=== PATIENT | male | born 1945 | race Caucasian/White ===

== ENCOUNTER 2017-03-25 03:21 | Inpatient (IN) | payer MEDICARE, OTHER ==
[~2017-03-25] VITALS: Ht 172.7 cm; Wt 70.1 kg
[~2017-03-25 03:21] MED LIST: 3-IN3MIS; ACET325 PO; ASPI325T PO; BUSP5 PO; DONE10TA14 OR; FENO134C OR; FLUO-1 PO; LEVE500 PO; RANI300T PO; RISPM2 PO; TRAZ100T4 PO; TRIF1TAB2 PO; WALKER ROLLING; WALKER STANDARD; ZOCO40TA PO
[2017-03-25 03:30] VITALS: BP 154/80; PULSE 71; RESP 16; TEMP 97.7; O2SAT 99
--- NOTE | 2017-03-25 04:03 | PD ---
HPI Chief Complaint: Fall Time Seen by Provider: 03:38 Travel History International Travel<30 days: No Contact w/Intl Traveler<30days: No Traveled to known affect area: No History of Present Illness HPI 71yo M with PMH of DM, HLD, dementia, schizophrenia, HTN presents to the ED from [facility] for CT brain after fall today. Pt states he does not know what happened. As per nurse, a resident there saw him trip over wheelchair and fell and hit his head. Staff thought that he had slight right facial droop and his speech sounds funny. Pt denies any complaints. PFSH Past Medical History Hx Anticoagulant Therapy: No Arthritis: No Asthma: No Autoimmune Disease: No Blood Disorders: No Anxiety: No Depression: No Heart Rhythm Problems: No Cancer: No Cardiovascular Problems: Yes High Cholesterol: Yes Chemotherapy: No Chest Pain: No Congestive Heart Failure: No COPD: No Cerebrovascular Accident: No Dementia: Yes Diabetes: Yes Diminished Hearing: No Endocrine: No GERD: No Genitourinary: Yes (KIDNEY STONES) Hiatal Hernia: No Hypertension: Yes Immune Disorder: No Implanted Vascular Access Dvce: Yes Kidney Stones: Yes Musculoskeletal: No Neurologic: No Psychiatric: Yes (SCHIZOPHRENIA) Reproductive: No Respiratory: No Immunizations Current: No Migraines: No Radiation Therapy: No Renal Failure: No Schizophrenia: Yes Seizures: Yes (OVER 5 YEARS AGO) Sickle Cell Disease: No Sleep Apnea: No Thyroid Disease: No Ulcer: No PNEUMOCCOCAL Vaccine (Year): 2008 Past Surgical History Abdominal Surgery: No AICD: No Arteriovenous Shunt: No Cardiac Surgery: No Ear Surgery: No Endocrine Surgery: No (DIABETIC CONTROLLED WITH METFORMIN) Eye Surgery: No Genitourinary Surgery: No Gynecologic Surgery: No Hysterectomy: No Insulin Pump: No Joint Replacement: Yes (RIGHT HIP) Oral Surgery: Yes (CLEFT PALLET REPAIR) Pacemaker: No Thoracic Surgery: No Tonsillectomy: Yes Other Surgery: Yes (CLEFT PALATE/CLEFT LIP REPAIR.) Social History Alcohol Use: No Tobacco Use: Yes (2.5 PPD) Substance Use: No Allergies-Medications (Allergen,Severity, Reaction): Coded Allergies: bee venom protein (honey bee) (Unverified Allergy, Severe, PASSES OUT, ) risperidone (Unverified Allergy, Intermediate, Rash, 03/25/17) Reported Meds & Prescriptions Reported Meds & Active Scripts Active Reported Tylenol (Acetaminophen) 325 Mg Tab 650 Mg PO Q8HR Zantac (Ranitidine HCl) 150 Mg Tab 75 Mg PO DAILY Trifluoperazine (Trifluoperazine HCl) 10 Mg Tab 10 Mg PO HS Trazodone (Trazodone HCl) 50 Mg Tab 50 Mg PO HS Risperdal (Risperidone) 4 Mg Tab 4 Mg PO Q12HR Prozac (Fluoxetine HCl) 10 Mg Cap 10 Mg PO DAILY Metformin (Metformin HCl) 500 Mg Tab 500 Mg PO HS With a meal Metformin (Metformin HCl) 1,000 Mg Tab 1,000 Mg PO DAILY With a meal Keppra (Levetiracetam) 500 Mg Tab 500 Mg PO BID Fenofibrate Micronized 134 Mg Cap 134 Mg PO HS Donepezil 10 Mg Tab 10 Mg PO HS Vitamin D-1000 (Cholecalciferol) 1,000 Unit Tab 1,000 Units PO DAILY Buspirone (Buspirone HCl) 5 Mg Tab 5 Mg PO TID Atorvastatin (Atorvastatin Calcium) 20 Mg Tab 20 Mg PO HS Aspirin EC (Aspirin) 325 Mg Tabdr 325 Mg PO DAILY Review of Systems Except as stated in HPI: all other systems reviewed are Neg Physical Exam Narrative GENERAL: 71yo M not in distress. SKIN: Focused skin assessment warm/dry. HEAD: Atraumatic. Normocephalic. EYES: Pupils equal and round. No scleral icterus. No injection or drainage. ENT: No nasal bleeding or discharge. Mucous membranes pink and moist. NECK: Trachea midline. No JVD. CARDIOVASCULAR: Regular rate and rhythm. No murmur appreciated. RESPIRATORY: No accessory muscle use. Clear to auscultation. Breath sounds equal bilaterally. GASTROINTESTINAL: Abdomen soft, non-tender, nondistended. MUSCULOSKELETAL: No obvious deformities. No clubbing. No cyanosis. No edema. NEUROLOGICAL: AAOX3. Right angle of mouth is slightly lower than left, unknown if this is new. Pt has no teeth and no dysarthria. Data Data Last Documented VS Vital Signs Date Time Temp Pulse Resp B/P (MAP) Pulse Ox O2 Delivery O2 Flow Rate FiO2 03/25/17 03:30 97.7 71 16 154/80 (104) [address] Brain W/O Iv Contrast(Rout) (03/25/17 ) Complete Blood Count With Diff (03/25/17 03:46) Basic Metabolic Panel (Bmp) (03/25/17 03:46) Prothrombin Time / Inr (Pt) (03/25/17 03:46) Act Partial Throm Time (Ptt) (03/25/17 03:46) Electrocardiogram (03/25/17 ) Troponin I (03/25/17 03:46) Admit Order (Ed Use Only) (03/25/17 05:13) Labs Laboratory Tests Test 03/25/17 03:50 White Blood Count 8.8 TH/MM3 Red Blood Count 4.40 MIL/MM3 Hemoglobin 13.3 GM/DL Hematocrit 40.8 % Mean Corpuscular Volume 92.8 FL Mean Corpuscular Hemoglobin 30.3 PG Mean Corpuscular Hemoglobin Concent 32.6 % Red Cell Distribution Width 14.2 % Platelet Count 312 TH/MM3 Mean Platelet Volume 8.3 FL Neutrophils (%) (Auto) 68.7 % Lymphocytes (%) (Auto) 17.7 % Monocytes (%) (Auto) 11.0 % Eosinophils (%) (Auto) 1.8 % Basophils (%) (Auto) 0.8 % Neutrophils # (Auto) 6.0 TH/MM3 Lymphocytes # (Auto) 1.6 TH/MM3 Monocytes # (Auto) 1.0 TH/MM3 Eosinophils # (Auto) 0.2 TH/MM3 Basophils # (Auto) 0.1 TH/MM3 CBC Comment DIFF FINAL Differential Comment Prothrombin Time 11.1 SEC Prothromb Time International Ratio 1.0 RATIO Activated Partial Thromboplast Time 24.2 SEC Blood Urea Nitrogen 14 MG/DL Creatinine 1.16 MG/DL Random Glucose 91 MG/DL Calcium Level 8.9 MG/DL Sodium Level 134 MEQ/L Potassium Level 4.5 MEQ/L Chloride Level 103 MEQ/L Carbon Dioxide Level 22.3 MEQ/L Anion Gap 9 MEQ/L Estimat Glomerular Filtration Rate 62 ML/MIN Troponin I LESS THAN 0.02 NG/ML [facility] Medical Decision Making Medical Screen Exam Complete: Yes Emergency Medical Condition: Yes Interpretation(s) EKG: NSR 65bpm. Normal axis. No ST segment elevation or depression. Differential Diagnosis CVA vs. Syncope vs. arrhythmia vs. mechanical fall Narrative Course 71yo F here for evaluation of head trauma. Pt states he does not know what happened. [facility] is stating he has a new right facial droop and his speech is "funny". Labs reviewed, no leukocytosis. BMP unremarkable. Troponin negative. CT brain negative. Given that he may have new changes in his speech and new facial droop, will observe for TIA work up. Discussed with Dr. Robertson and accepted to her service. Diagnosis Primary Impression: TIA (transient ischemic attack) Qualified Codes: G45.9 - Transient cerebral ischemic attack, unspecified Admitting Information Admitting Physician Requests: Observation Joan Husain DO Mar 25, 2017 04:03
[2017-03-25 04:09] LABS: BASOPHIL # 0.1 TH/MM3 (0-0.2); BASOPHIL % 0.8 % (0.0-2.0); EOSINOPHIL # 0.2 TH/MM3 (0-0.4); EOSINOPHIL % 1.8 % (0.0-4.0); HEMATOCRIT 40.8 % (39.0-51.0); HEMO FLAGS DIFF FINAL; LYMPH % 17.7 % (9.0-44.0); LYMPHOCYTE # 1.6 TH/MM3 (1.0-4.8); MEAN CELL VOLUME 92.8 FL (80.0-100.0); MEAN CORPUSCULAR HEMOGLOBIN 30.3 PG (27.0-34.0); MEAN CORPUSCULAR HGB CONC 32.6 % (32.0-36.0); NEUT % 68.7 % (16.0-70.0); PLATELET COUNT 312 TH/MM3 (150-450); RED CELL DISTRIBUTION WIDTH 14.2 % (11.6-17.2); WHITE BLOOD COUNT 8.8 TH/MM3 (4.0-11.0)
[2017-03-25 04:19] LABS: APTT (PATIENT) 24.2 SEC (24.3-30.1); PROTHROMBIN TIME - PATIENT 11.1 SEC (9.8-11.6)
--- NOTE | 2017-03-25 04:23 | RADRPT ---
EXAM DATE/TIME: 03/25/2017 03:59 [facility] COMPARISON: CT BRAIN W/O CONTRAST, April 10, 2015, 22:15. INDICATIONS : Trauma, fell and hit head. RADIATION DOSE: 37.65 CTDIvol (mGy) MEDICAL HISTORY : Dementia. Hypertension. Renal calculi.Diabetes. SURGICAL HISTORY : None. ENCOUNTER: Initial ACUITY: 1 day PAIN SCALE: 4/10 LOCATION: cranial TECHNIQUE: Multiple contiguous axial images were obtained of the head. Using automated exposure control and adj ustment of the mA and/or kV according to patient size, radiation dose was kept as low as reasonably a chievable to obtain optimal diagnostic quality images. DICOM format image data is available electro nically for review and comparison. FINDINGS: CEREBRUM: The ventricles are normal for age. There appears to be a small lacunar infarct in the right basal ga nglia. No evidence of midline shift, mass lesion, hemorrhage or acute infarction. No extra-axial flu id collections are seen. POSTERIOR FOSSA: The cerebellum and brainstem are intact. The 4th ventricle is midline. The cerebellopontine angle i s unremarkable. EXTRACRANIAL: The visualized portion of the orbits is intact. SKULL: The calvaria is intact. No evidence of skull fracture. CONCLUSION: No acute disease. Humberto Connolly MD on March 25, 2017 at 4:19 Board Certified Radiologist. This report was verified electronically.
[2017-03-25 04:26] LABS: ANION GAP 9 MEQ/L (5-15); BICARBONATE 22.3 MEQ/L (21.0-32.0); BLOOD UREA NITROGEN 14 MG/DL (7-18); CHLORIDE 103 MEQ/L (98-107); GLOMERULAR FILTRATION RATE 62 ML/MIN (>89); POTASSIUM 4.5 MEQ/L (3.5-5.1); SODIUM (NA) 134 MEQ/L (136-145)
[2017-03-25] MEDS: SODIUM CHLOR 0.9% 1000 ML INJ 1,000 ML IV SCH ×2 (05:18→14:36)
[2017-03-25] MEDS ORDERED: LACTULOSE SYRUP 20 GM/30 ML CUP PO PRN (05:30)
[2017-03-25] MEDS ORDERED: SODIUM CHLORIDE 0.9% FLUSH 10 ML FLUSH IV FLUSH PRN (05:30)
[2017-03-25] MEDS ORDERED: ONDANSETRON HCL 4 MG/2 ML VIAL IVP PRN (05:30)
[2017-03-25] MEDS ORDERED: SENNOSIDES 8.6 MG TAB PO PRN (05:30)
[2017-03-25] MEDS ORDERED: ACETAMINOPHEN 325 MG TAB PO PRN (05:30)
[2017-03-25] MEDS ORDERED: ACETAMINOPHEN/HYDROcodone 325 MG/5 MG TAB PO PRN (05:30)
[2017-03-25] MEDS ORDERED: BISACODYL 10 MG SUPP RECTAL PRN (05:30)
[2017-03-25] MEDS ORDERED: ACETAMINOPHEN/HYDROcodone 325 MG/10 MG TAB PO PRN (05:30)
[2017-03-25] MEDS ORDERED: MAGNESIUM HYDROXIDE SUSP 30 ML CUP PO PRN (05:30)
--- NOTE | 2017-03-25 05:35 | HHI.HP ---
HPI Service [facility] Primary Care Physician Unknown Admission Diagnosis Possible TIA Diagnoses: (1) TIA (transient ischemic attack) Diagnosis: Principal (2) Fall Diagnosis: Principal (3) Dementia Diagnosis: Principal (4) Schizophrenia Diagnosis: Principal (5) Tobacco abuse Diagnosis: Principal Travel History International Travel<30 Days: No Contact w/Intl Traveler <30 Da: No Traveled to Known Affected Are: No History of Present Illness A 71-year-old male with a PMH of HTN, Hyperlipidemia, Dementia, Schizophrenia and Tobacco Abuse who was sent to the ER from [facility] for eval after fall. Pt unable to provide much history, does not recall events. Per report, resident at facility witnessed patient trip over wheelchair, +head trauma, no apparent LOC. Noticed to have possible facial droop and slurred speech. Pt without complaints at this time. On exam pt edentulous, very mild droop, baseline unclear. BP 154/80, HR 71, O2 sat 99% on RA, Afebrile. CBC unremarkable. Chemistry essentially unremarkable except for GFR 62. Troponin negative. CT Abdomen no acute findings. Review of Systems Except as stated in HPI: all other systems reviewed are Neg ROS: 14 point review of systems otherwise negative. Past Family Social History Past Medical History PMH: HTN, Hyperlipidemia, Dementia, Schizophrenia and Tobacco Abuse Past Surgical History PAST SURGICAL HISTORY: Right Hip Replacement, Cleft Palate Repair, Tonsillectomy Allergies: Coded Allergies: bee venom protein (honey bee) (Unverified Allergy, Severe, PASSES OUT, ) risperidone (Unverified Allergy, Intermediate, Rash, 03/25/17) Family History PAST FAMILY HISTORY: Reviewed. No h/o DM or CAD Social History PAST SOCIAL HISTORY: Negative for alcohol or drugs. Smokes 2.5ppd Physical Exam Vital Signs Vital Signs Date Time Temp Pulse Resp B/P (MAP) Pulse Ox O2 Delivery O2 Flow Rate FiO2 03/25/17 03:30 97.7 71 16 154/80 (104) 99 Physical Exam PE: GENERAL: Pleasantly demented elderly white male in no acute distress. HEENT: PERRLA, EOMI. No scleral icterus or conjunctival pallor. No lid lag. Very mild facial droop, unclear if baseline CARDIOVASCULAR: Regular rate and rhythm. No obvious murmurs to auscultation. No chest tenderness to palpation. RESPIRATORY: No obvious rhonchi or wheezing. Clear to auscultation. Breath sounds equal bilaterally. GASTROINTESTINAL: Abdomen soft, non-tender, nondistended. BS normal. MUSCULOSKELETAL: Extremities without clubbing, cyanosis, or edema. No obvious deformities. NEUROLOGICAL: Awake, alert, confused, at baseline. No focal neurologic deficits. Moving both upper and lower extremities spontaneously. Laboratory Laboratory Tests Test 03/25/17 03:50 White Blood Count 8.8 Red Blood Count 4.40 Hemoglobin 13.3 Hematocrit 40.8 Mean Corpuscular Volume 92.8 Mean Corpuscular Hemoglobin 30.3 Mean Corpuscular Hemoglobin Concent 32.6 Red Cell Distribution Width 14.2 Platelet Count 312 Mean Platelet Volume 8.3 Neutrophils (%) (Auto) 68.7 Lymphocytes (%) (Auto) 17.7 Monocytes (%) (Auto) 11.0 Eosinophils (%) (Auto) 1.8 Basophils (%) (Auto) 0.8 Neutrophils # (Auto) 6.0 Lymphocytes # (Auto) 1.6 Monocytes # (Auto) 1.0 Eosinophils # (Auto) 0.2 Basophils # (Auto) 0.1 CBC Comment DIFF FINAL Differential Comment Prothrombin Time 11.1 Prothromb Time International Ratio 1.0 Activated Partial Thromboplast Time 24.2 Blood Urea Nitrogen 14 Creatinine 1.16 Random Glucose 91 Calcium Level 8.9 Sodium Level 134 Potassium Level 4.5 Chloride Level 103 Carbon Dioxide Level 22.3 Anion Gap 9 Estimat Glomerular Filtration Rate 62 Troponin I LESS THAN 0.02 Result Diagram: 03/25/1734903/25/17349 Caprini VTE Risk Assessment Caprini VTE Risk Assessment: No/Low Risk (score <= 1) Caprini Risk Assessment Model Point Value = 1 Point Value = 2 Point Value = 3 Point Value = 5 Age 41-60 Minor surgery BMI > 25 kg/m2 Swollen legs Varicose veins or History of unexplained or recurrent spontaneous Oral contraceptives or hormone replacement Sepsis (< 1 month) Serious lung disease, including pneumonia (< 1 month) Abnormal pulmonary function Acute myocardial infarction Congestive heart failure (< 1 month) History of inflammatory bowel disease Medical patient at bed rest Age 61-74 Arthroscopic surgery Major open surgery (> 45 min) Laparoscopic surgery (> 45 min) Malignancy Confined to bed (> 72 hours) Immobilizing plaster cast Central venous access Age >= 75 History of VTE Family history of VTE Factor V Leiden Prothrombin [id number] Lupus anticoagulant Anticardiolipin antibodies Elevated serum homocysteine Heparin-induced thrombocytopenia Other congenital or acquired thrombophilia Stroke (< 1 month) Elective arthroplasty Hip, pelvis, or leg fracture Acute spinal cord injury (< 1 month) Prophylaxis Regimen Total Risk Factor Score Risk Level Prophylaxis Regimen 0-1 Low Early ambulation 2 Moderate Order ONE of the following: *Sequential Compression Device (SCD) *Heparin 5000 units SQ BID 3-4 Higher Order ONE of the following medications: *Heparin 5000 units SQ TID *Enoxaparin/Lovenox 40 mg SQ daily (WT < 150 kg, CrCl > 30 mL/min) *Enoxaparin/Lovenox 30 mg SQ daily (WT < 150 kg, CrCl > 10-29 mL/min) *Enoxaparin/Lovenox 30 mg SQ BID (WT < 150 kg, CrCl > 30 mL/min) AND/OR *Sequential Compression Device (SCD) 5 or more Highest Order ONE of the following medications: *Heparin 5000 units SQ TID (Preferred with Epidurals) *Enoxaparin/Lovenox 40 mg SQ daily (WT < 150 kg, CrCl > 30 mL/min) *Enoxaparin/Lovenox 30 mg SQ daily (WT < 150 kg, CrCl > 10-29 mL/min) *Enoxaparin/Lovenox 30 mg SQ BID (WT < 150 kg, CrCl > 30 mL/min) AND *Sequential Compression Device (SCD) Assessment and Plan Problem List: (1) Schizophrenia Status: Chronic (2) Fall ICD Code: W19.XXXA - Unspecified fall, initial encounter (3) Tobacco abuse ICD Code: Z72.0 - Tobacco use (4) Dementia ICD Code: F03.90 - Unspecified dementia without behavioral disturbance (5) TIA (transient ischemic attack) ICD Code: G45.9 - Transient cerebral ischemic attack, unspecified Status: Acute Assessment and Plan A/P: 1. Fall: s/p mechanical trip and fall at Rehab, witnessed by another resident , +head trauma, no reported LOC. CT Head w/ no acute findings, images reviewed by me. No other injuries noted. 2. TIA: per report, pt w/ facial droop/slurred speech, on exam pt w/ minimal droop, edentulous no significant slurring, unclear if baseline. CT Head negative as above. Check MRI Brain, ASA, Statin. Consult Neurology for further eval. 3. Dementia: Pleasantly confused, requires redirection, seemingly at baseline. Resume home medications. 4. Schizophrenia: Stable. Resume home medications. 5. Tobacco Abuse: Heavy. Ativan prn if needed. No NicoDerm to avoid vasoconstriction. 6. DVT Prophylaxis: SCD/Teds. 7. Social work for d/c planning as needed. 8. Case discussed w/ ER physician at length. Physician Certification 2 Midnight Certification Type: Admission for Inpatient Services Order for Inpatient Services The services are ordered in accordance with Medicare regulations or non- Medicare payer requirements, as applicable. In the case of services not specified as inpatient-only, they are appropriately provided as inpatient services in accordance with the 2-midnight benchmark. Estimated LOS (days): 2 days is the estimated time the patient will need to remain in the hospital, assuming treatment plan goals are met and no additional complications. Post-Hospital Plan: Not yet determined Problem Qualifiers (1) TIA (transient ischemic attack): Qualified Codes: G45.9 - Transient cerebral ischemic attack, unspecified Anne Robertson MD Mar 25, 2017 05:34
[2017-03-25] MEDS ORDERED: VITA1000 PO (05:45)
[2017-03-25] MEDS ORDERED: DONE10TA7 PO (05:45)
[2017-03-25] MEDS ORDERED: ASPI325T33 PO (05:45)
[2017-03-25] MEDS ORDERED: LEVE500 PO (05:45)
[2017-03-25] MEDS ORDERED: TRAZ50TA12 PO (05:45)
[2017-03-25] MEDS ORDERED: METF1000 PO (05:45)
[2017-03-25] MEDS ORDERED: TYLE325T PO (05:45)
[2017-03-25] MEDS ORDERED: ZANT150T2 PO (05:45)
[2017-03-25] MEDS ORDERED: METF500T PO (05:45)
[2017-03-25] MEDS ORDERED: TRIF10TA PO (05:45)
[2017-03-25] MEDS ORDERED: RISP4TAB41 PO (05:45)
[2017-03-25] MEDS ORDERED: FLUO-1 PO (05:45)
[2017-03-25] MEDS ORDERED: BUSP5TAB PO (05:45)
[2017-03-25] MEDS ORDERED: FENO134C PO (05:45)
[2017-03-25] MEDS ORDERED: ATOR20TA15 PO (05:45)
[2017-03-25 07:27] VITALS: BP 157/61; PULSE 67; RESP 19; O2SAT 97
--- NOTE | 2017-03-25 07:27 | EKG ---
Date Performed: 03/25/2017 Time Performed: 04:14:45 PTAGE: 71 years EKG: Sinus rhythm NORMAL ECG No significant change from prior electrocardiogram. PREVIOUS TRACING : 04/10/2015 21.55 DOCTOR: Dov Peter Interpretating Date/Time 03/25/2017 07:26:19
[2017-03-25 09:00] VITALS: BP 187/91; PULSE 66; RESP 17; TEMP 97.9; O2SAT 98
[2017-03-25] MEDS: SODIUM CHLORIDE 0.9% FLUSH 10 ML FLUSH IV FLUSH SCH ×2 (09:00→20:54)
[2017-03-25] MEDS: DOCUSATE SODIUM 50 MG/SENNA 8.6 MG TAB PO SCH ×2 (10:38→20:54)
[2017-03-25] MEDS: PRAVASTATIN SOD 40 MG TAB PO SCH (10:38)
[2017-03-25] MEDS: ASPIRIN EC 81 MG TABEC PO SCH (10:38)
[2017-03-25] MEDS: levETIRAcetam 500 MG TAB PO SCH ×2 (11:00→20:54)
[2017-03-25] MEDS: risperiDONE 1 MG TAB PO SCH ×2 (11:00→20:54)
--- NOTE | 2017-03-25 11:14 | RADRPT ---
EXAM DATE/TIME: 03/25/2017 10:51 [facility] COMPARISON: MRI BRAIN W/O CONTRAST, April 12, 2015, 10:59. INDICATIONS : Syncopal episode with fall. MEDICAL HISTORY : Hypertension. Hypercholesterolemia. Dementia. SURGICAL HISTORY : Right hip replacement. Cleft palate repair. ENCOUNTER: Initial ACUITY: 1 day PAIN SCORE: 0/10 LOCATION: cranial TECHNIQUE: Multiplanar, multisequence MRI of the brain was performed without contrast. FINDINGS: CEREBRUM: The ventricles are normal for age. There is bilateral cortical atrophy which appears to be stable. N o evidence of midline shift, mass lesion, hemorrhage or acute infarction. No extraaxial fluid collec tions are seen. The pituitary gland and suprasellar cistern are normal in configuration. WHITE MATTER: Stable moderate chronic white matter changes bilaterally. POSTERIOR FOSSA: The cerebellum and brainstem are intact. The 4th ventricle is midline. The cerebellopontine angle is unremarkable. The cerebellar tonsils are normal in position. DIFFUSION IMAGING: No focal areas of restricted diffusion are seen. No evidence of acute infarction. EXTRACRANIAL: Small mucous retention cyst in the left maxillary sinus. This was present on the prior study. CONCLUSION: 1. Stable MRI of the brain compared to prior exam 04/12/2015. 2. Stable bilateral cortical atrophy and chronic white matter changes. 3. Chronic sinus disease in the left maxillary sinus. Derick Ordonez MD on March 25, 2017 at 11:11 Board Certified Radiologist. This report was verified electronically.
[2017-03-25 11:15] VITALS: BP 120/73; PULSE 104; RESP 17; TEMP 97.8; O2SAT 99
--- NOTE | 2017-03-25 11:52 | HHI.PR ---
Subjective Remarks Follow up TIA. Patient has no complaints. Denies chest pain, dyspnea. Objective Vitals Vital Signs Date Time Temp Pulse Resp B/P (MAP) Pulse Ox O2 Delivery O2 Flow Rate FiO2 03/25/17 09:00 97.9 66 17 187/91 (123) 98 03/25/17 08:20 03/25/17 07:27 67 19 157/61 (93) 97 Room Air 03/25/17 03:30 97.7 71 16 154/80 (104) 99 Result Diagram: 03/25/17 0350 03/25/17 0350 Objective Remarks General: Elderly male in no acute distress. Heart: Regular rate and rhythm. No murmur. Lungs: Clear to auscultation bilaterally. No wheezes, rales, or rhonchi. Breathing is nonlabored. Abdomen: Soft, nontender, nondistended. Extremities: No lower extremity edema. Psych: Alert, confused. Procedures None Urinary Catheter: No Vascular Central Line Catheter: No A/P Problem List: (1) Schizophrenia Status: Chronic (2) Fall ICD Code: W19.XXXA - Unspecified fall, initial encounter (3) Tobacco abuse ICD Code: Z72.0 - Tobacco use (4) Dementia ICD Code: F03.90 - Unspecified dementia without behavioral disturbance (5) TIA (transient ischemic attack) ICD Code: G45.9 - Transient cerebral ischemic attack, unspecified Status: Acute Assessment and Plan 1. Fall: Patient is status post mechanical trip and fall at rehabilitation. This was witnessed by another resident. He did hit his head, but had no reported loss of consciousness. CT of the head is negative for acute findings. MRI is unremarkable as well. 2. TIA: Patient presented with facial droop, slurred speech. This seems to have improved. CT and MRI of the brain are negative. Continue aspirin, statin. Neurology consultation is pending. 3. Dementia: Patient remains confused. Apparently at baseline. Continue Aricept. 4. Schizophrenia: Stable. Continue home medications. 5. Tobacco abuse: Avoid nicotine patch at this time. 6. DVT prophylaxis: SCDs, MAKENNA hose. Problem Qualifiers (1) TIA (transient ischemic attack): Qualified Codes: G45.9 - Transient cerebral ischemic attack, unspecified Ladarius Rasheed MD Mar 25, 2017 11:52
[2017-03-25] MEDS: busPIRone HCL 5 MG TAB PO SCH ×2 (13:15→18:02)
[2017-03-25] MEDS: FLUoxetine HCL 10 MG CAP PO SCH (13:16)
[2017-03-25 15:30] VITALS: BP 141/74; PULSE 68; RESP 16; TEMP 98.1; O2SAT 99
--- NOTE | 2017-03-25 17:28 | RADRPT ---
EXAM DATE/TIME: 03/25/2017 16:07 [facility] COMPARISON: US CAROTID ARTERIES, April 11, 2015, 21:13. INDICATIONS : Transient ischemic attack. MEDICAL HISTORY : Renal calculi. Hypercholesterolemia. Hypertension. Schizophrenia. PTSD. SURGICAL HISTORY : Tonsillectomy. Cleft palate repair. Bilateral hip joint replacement. ENCOUNTER: Initial ACUITY: 1 day PAIN SCORE: 0/10 LOCATION: Bilateral neck PEAK SYSTOLIC VELOCITIES (cm/sec): ICA/CCA RATIO: Right: 1.5 Left: 0.8 ICA: Right: 79 Left: 46 CCA: Right: 52 Left: 59 ECA: Right: 56 Left: 76 VERTEBRAL: Right: 56 antegrade Left: 50 antegrade Elevated flow velocities and ICA/CCA ratios have been found to correlate with increased degrees of vessel stenosis, calculated as percentage of diameter relative to a normal segment of distal ICA/CCA FINDINGS: Ultrasound of the carotid arteries was performed bilaterally using real-time Doppler and color Dopple r imaging. Examination of the right carotid artery demonstrates mild fibrous plaque within the bifurcation. No w aveform abnormalities are identified and no spectral broadening is seen. Examination of the left bhagat tid artery demonstrates mild fibrous plaque within the bulb. No waveform abnormalities are identified and no spectral broadening is seen. There is antegrade flow in both vertebral arteries. CONCLUSION: No evidence of hemodynamically significant lesion. Brant King MD on March 25, 2017 at 17:27 Board Certified Radiologist. This report was verified electronically.
[2017-03-25 20:30] VITALS: BP 170/107; PULSE 90; RESP 18; TEMP 97.2; O2SAT 97
[2017-03-25] MEDS ORDERED: cloNIDine HCL 0.1 MG TAB PO ONE (20:45)
[2017-03-25] MEDS: DONEPEZIL HCL 5 MG TAB PO SCH (20:54)
[2017-03-25] MEDS: FENOFIBRATE 145 MG TAB PO SCH (20:54)
[2017-03-25] MEDS: traZODone HCL 50 MG TAB PO SCH (20:54)
[2017-03-25] MEDS ORDERED: TRIFLUOPERAZINE 10 MG PO SCH (21:00)
[2017-03-26] VITALS (8 sets, daily range): BP systolic 96–126; BP diastolic 51–79; PULSE 54–75; RESP 16–18; TEMP 97.5–98.7; O2SAT 93–97
[2017-03-26] MEDS: SODIUM CHLOR 0.9% 1000 ML INJ 1,000 ML IV SCH ×3 (01:18→21:18)
[2017-03-26 06:55] LABS: AUTOMATED NEUTROPHIL # 3.4 TH/MM3 (1.8-7.7); BASOPHIL # 0.1 TH/MM3 (0-0.2); BASOPHIL % 1.2 % (0.0-2.0); EOSINOPHIL # 0.3 TH/MM3 (0-0.4); EOSINOPHIL % 3.8 % (0.0-4.0); HEMATOCRIT 41.4 % (39.0-51.0); HEMO FLAGS DIFF FINAL; LYMPH % 38.7 % (9.0-44.0); MEAN CELL VOLUME 93.8 FL (80.0-100.0); MEAN CORPUSCULAR HEMOGLOBIN 29.7 PG (27.0-34.0); MEAN CORPUSCULAR HGB CONC 31.6 % (32.0-36.0); MONO % 11.8 % (0.0-8.0); NEUT % 44.5 % (16.0-70.0); PLATELET COUNT 335 TH/MM3 (150-450); RED BLOOD COUNT 4.42 MIL/MM3 (4.50-5.90); RED CELL DISTRIBUTION WIDTH 14.6 % (11.6-17.2); WHITE BLOOD COUNT 7.7 TH/MM3 (4.0-11.0)
[2017-03-26 07:18] LABS: ANION GAP 7 MEQ/L (5-15); AST (GOT) 29 U/L (15-37); BLOOD UREA NITROGEN 15 MG/DL (7-18); CHLORIDE 108 MEQ/L (98-107); GLOMERULAR FILTRATION RATE 53 ML/MIN (>89); POTASSIUM 4.8 MEQ/L (3.5-5.1); SODIUM (NA) 142 MEQ/L (136-145)
[2017-03-26 07:21] LABS: ALKALINE PHOSPHATASE 55 U/L (45-117); ALT (GPT) 31 U/L (12-78); TOTAL BILIRUBIN ADULT 0.3 MG/DL (0.2-1.0)
--- NOTE | 2017-03-26 08:10 | MB ---
cc: SEVEN RHODES M.D. DATE OF CONSULTATION 03/25/2017 REASON FOR CONSULTATION: Dian Waterman is a 71-year-old seen in neurological consultation in regards to fall, closed head injury. HISTORY OF THE PRESENT ILLNESS Apparently the patient passed out, fell, hit his head. No major consequences. PAST MEDICAL HISTORY There is a history of: 1. Dementia. 2. Schizoaffective disorder. 3. Hypertension. 4. Hyperlipidemia. He lives in a assisted facility and apparently has been there for a couple of years. He denies stroke or TIAs but admits he had a couple of seizures a long time ago, no medications for seizures. NEUROLOGICAL EXAMINATION Examination showed the patient to be alert, pleasant, cooperative and actually he was oriented. He provides some background information. He is somewhat vague. He is in no distress. Ocular movements and visual soto were normal. He has good strength on the bedside examination and reflexes were 1-2+. Plantar responses flexor bilaterally. IMAGING He has had a number of studies. MRI brain and CT scan brain were unremarkable for any acute process. There are chronic microvascular changes and chronic left maxillary sinus disease. LABORATORY DATA WBC 8.8, hemoglobin 13.3, platelet 312. Sodium 134. Chemistry is essentially normal. ASSESSMENT Status post a fall with closed head injury. He may have had a syncopal episode. He seems to be back to baseline. There is a history of dementia though he was actually oriented, pleasant and cooperative. History of schizoaffective disorder. He is on a number of medications including Aricept, trazodone, Tricor, BuSpar, Prozac, Keppra 500 twice a day, risperidone, aspirin. 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 Thank you for asking us to participate in his care. MD AARTI Barragan/KK /3:26 PM /8:06 AM
[2017-03-26] MEDS: DOCUSATE SODIUM 50 MG/SENNA 8.6 MG TAB PO SCH ×2 (09:00→21:24)
[2017-03-26] MEDS: SODIUM CHLORIDE 0.9% FLUSH 10 ML FLUSH IV FLUSH SCH ×2 (09:00→21:16)
[2017-03-26] MEDS: levETIRAcetam 500 MG TAB PO SCH ×2 (09:11→21:15)
[2017-03-26] MEDS: CHOLECALCIFEROL (VIT D3) 1000 UNIT TAB PO SCH (09:11)
[2017-03-26] MEDS: FAMOTIDINE 20 MG TAB PO SCH ×2 (09:11→21:15)
[2017-03-26] MEDS: FLUoxetine HCL 10 MG CAP PO SCH (09:11)
[2017-03-26] MEDS: risperiDONE 1 MG TAB PO SCH ×2 (09:11→21:16)
[2017-03-26] MEDS: ASPIRIN EC 81 MG TABEC PO SCH (09:12)
[2017-03-26] MEDS: busPIRone HCL 5 MG TAB PO SCH ×3 (09:12→17:18)
[2017-03-26] MEDS: PRAVASTATIN SOD 40 MG TAB PO SCH (09:12)
--- NOTE | 2017-03-26 11:27 | HHI.PR ---
Subjective Remarks Follow up TIA, renal insufficiency. Patient has no complaints. Denies chest pain , dyspnea. Off IV fluids for PT and due to IV infiltration. Objective Vitals Vital Signs Date Time Temp Pulse Resp B/P (MAP) Pulse Ox O2 Delivery O2 Flow Rate FiO2 03/26/17 08:45 97.9 66 17 109/52 (71) 93 03/26/17 05:33 54 03/26/17 05:00 98.7 58 18 117/60 (79) 97 03/26/17 00:29 97.6 54 18 126/66 (86) 97 03/25/17 20:30 97.2 90 18 170/107 (128) 97 03/25/17 15:30 98.1 68 16 141/74 (96) 99 I/O 03/25/17 03/25/17 03/25/17 03/26/17 03/26/17 03/26/17 07:00 15:00 23:00 07:00 15:00 23:00 # Voids 1 2 # Bowel Movements 2 1 Result Diagram: 03/26/17 0631 03/26/17 0631 Imaging Last Impressions Head CT 03/25/17 0000 Signed Impressions: Service Date/Time: Saturday, March 25, 2017 03:59 - CONCLUSION: No acute disease. Humberto Connolly MD Carotid Artery Ultrasound 03/25/17 0000 Signed Impressions: Service Date/Time: Saturday, March 25, 2017 16:07 - CONCLUSION: No evidence of hemodynamically significant lesion. Brant King MD Brain MRI 03/25/17 0000 Signed Impressions: Service Date/Time: Saturday, March 25, 2017 10:51 - CONCLUSION: 1. Stable MRI of the brain compared to prior exam 04/12/2015. 2. Stable bilateral cortical atrophy and chronic white matter changes. 3. Chronic sinus disease in the left maxillary sinus. Derick Ordonez MD Objective Remarks General: Elderly male in no acute distress. Heart: Regular rate and rhythm. No murmur. Lungs: Clear to auscultation bilaterally. No wheezes, rales, or rhonchi. Breathing is nonlabored. Abdomen: Soft, nontender, nondistended. Extremities: No lower extremity edema. Psych: Alert, confused. Procedures None Urinary Catheter: No Vascular Central Line Catheter: No A/P Problem List: (1) Schizophrenia Status: Chronic (2) Fall ICD Code: W19.XXXA - Unspecified fall, initial encounter (3) Tobacco abuse ICD Code: Z72.0 - Tobacco use (4) Dementia ICD Code: F03.90 - Unspecified dementia without behavioral disturbance (5) TIA (transient ischemic attack) ICD Code: G45.9 - Transient cerebral ischemic attack, unspecified Status: Acute Assessment and Plan 1. Fall: Patient is status post mechanical trip and fall at rehabilitation. This was witnessed by another resident. He did hit his head, but had no reported loss of consciousness. CT of the head is negative for acute findings. MRI is unremarkable as well. 2. TIA: Patient presented with facial droop, slurred speech. This seems to have improved. CT and MRI of the brain are negative. Continue aspirin, statin. Appreciate neurology recommendations. Carotid ultrasound is negative. 3. Dementia: Patient remains confused. Apparently at baseline. Continue Aricept. 4. Schizophrenia: Stable. Continue home medications. 5. Tobacco abuse: Avoid nicotine patch at this time. 6. Acute renal insufficiency superimposed on chronic kidney disease: IV fluids. Monitor BUN/creatinine. 7. DVT prophylaxis: [id number]. Discharge Planning Possible discharge back to SNF tomorrow. Problem Qualifiers (1) TIA (transient ischemic attack): Qualified Codes: G45.9 - Transient cerebral ischemic attack, unspecified Ladarius Rasheed MD Mar 26, 2017 11:27
--- NOTE | 2017-03-26 17:43 | HHI.PR ---
Review/Management Daily Summary 03/26 no cx per rn doing well overall walked under pt no new neuro intervention home/rehab soon Subjective Subjective Comments No acute events reported No headache No chest pain No dyspnea Active Medications Current Medications Medications (Trade) Dose Ordered Sig/Avis Route Start Time Stop Time Status Last Admin (Ecotrin Ec) 81 mg DAILY PO 03/25/17 09:00 03/26/17 09:12 (Pravachol) 40 mg DAILY PO 03/25/17 09:00 03/26/17 09:12 Sodium Chloride 1,000 ml @ 100 mls/hr Q10H IV 03/25/17 05:18 03/26/17 11:18 (NS Flush) 2 ml UNSCH PRN IV FLUSH 03/25/17 05:30 (NS Flush) 2 ml BID IV FLUSH 03/25/17 09:00 03/25/17 20:54 (Zofran Inj) 4 mg Q6H PRN IVP 03/25/17 05:30 (Tylenol) 650 mg Q6H PRN PO 03/25/17 05:30 ([place] 5-325 Mg) 1 tab Q4H PRN PO 03/25/17 05:30 ([place] 10-325 Mg) 1 tab Q4H PRN PO 03/25/17 05:30 (Ivette-Colace) 1 tab BID PO 03/25/17 09:00 03/25/17 10:38 (Milk Of Magnesia Liq) 30 ml Q12H PRN PO 03/25/17 05:30 (Senokot) 17.2 mg Q12H PRN PO 03/25/17 05:30 (Dulcolax Supp) 10 mg DAILY PRN RECTAL 03/25/17 05:30 (Lactulose Liq) 30 ml DAILY PRN PO 03/25/17 05:30 (Buspar) 5 mg TID PO 03/25/17 13:00 03/26/17 17:18 (Vitamin D3) 1,000 units DAILY PO 03/26/17 09:00 03/26/17 09:11 (Aricept) 10 mg HS PO 03/25/17 21:00 03/25/17 20:54 (PROzac) 10 mg DAILY PO 03/25/17 11:00 03/26/17 09:11 (Keppra) 500 mg BID PO 03/25/17 11:00 03/26/17 09:11 (Desyrel) 50 mg HS PO 03/25/17 21:00 03/25/17 20:54 (Tricor) 145 mg HS PO 03/25/17 21:00 03/25/17 20:54 (Pepcid) 20 mg BID PO 03/26/17 09:00 03/26/17 09:11 (risperDAL) 4 mg Q12HR PO 03/25/17 11:00 03/26/17 09:11 Patient Own Medication PT OWN MED: TRIFLUOPERAZINE 10MG PO HS HS PO 03/25/17 21:00 03/25/17 21:00 Allergies Allergies Coded Allergies bee venom protein (honey bee) (Unverified Allergy, Severe, PASSES OUT, ) risperidone (Unverified Allergy, Intermediate, Rash, 03/25/17) Exam I&O / VS 03/26/17 03/26/17 03/27/17 14:59 22:59 06:59 Intake Total 480 ml Output Total 800 ml Balance -320 ml Intake Oral 480 ml Output Urine Total 800 ml # Voids 1 # Bowel Movements 0 Vital Signs Date Time Temp Pulse Resp B/P (MAP) Pulse Ox O2 Delivery O2 Flow Rate FiO2 03/26/17 16:31 98.4 65 16 113/55 (74) 94 03/26/17 16:27 55 03/26/17 12:56 97.5 75 18 96/51 (66) 96 03/26/17 08:45 97.9 66 17 109/52 (71) 93 03/26/17 05:33 54 03/26/17 05:00 98.7 58 18 117/60 (79) 97 03/26/17 00:29 97.6 54 18 126/66 (86) 97 03/25/17 20:30 97.2 90 18 170/107 (128) 97 Respiratory: Lungs CTA, Non-labored respirations, BS equal Cardiology: Normal rate, Regular Rhythm Musculoskeletal: ROM Objective Radiology Results Last [address] 03/25/17 0000 Signed Impressions: Service Date/Time: Saturday, March 25, 2017 03:59 - CONCLUSION: No acute disease. Humberto Connolly MD Carotid Artery Ultrasound 03/25/17 0000 Signed Impressions: Service Date/Time: Saturday, March 25, 2017 16:07 - CONCLUSION: No evidence of hemodynamically significant lesion. Brant King MD Brain MRI 03/25/17 0000 Signed Impressions: Service Date/Time: Saturday, March 25, 2017 10:51 - CONCLUSION: 1. Stable MRI of the brain compared to prior exam 04/12/2015. 2. Stable bilateral cortical atrophy and chronic white matter changes. 3. Chronic sinus disease in the left maxillary sinus. Derick Ordonez MD Micro and Labs Laboratory Tests Test 03/26/17 06:31 White Blood Count 7.7 Red Blood Count 4.42 Hemoglobin 13.1 Hematocrit 41.4 Mean Corpuscular Volume 93.8 Mean Corpuscular Hemoglobin 29.7 Mean Corpuscular Hemoglobin Concent 31.6 Red Cell Distribution Width 14.6 Platelet Count 335 Mean Platelet Volume 7.9 Neutrophils (%) (Auto) 44.5 Lymphocytes (%) (Auto) 38.7 Monocytes (%) (Auto) 11.8 Eosinophils (%) (Auto) 3.8 Basophils (%) (Auto) 1.2 Neutrophils # (Auto) 3.4 Lymphocytes # (Auto) 3.0 Monocytes # (Auto) 0.9 Eosinophils # (Auto) 0.3 Basophils # (Auto) 0.1 CBC Comment DIFF FINAL Differential Comment Blood Urea Nitrogen 15 Creatinine 1.33 Random Glucose 89 Total Protein 6.7 Albumin 3.3 Calcium Level 9.1 Alkaline Phosphatase 55 Aspartate Amino Transf (AST/SGOT) 29 Alanine Aminotransferase (ALT/SGPT) 31 Total Bilirubin 0.3 Sodium Level 142 Potassium Level 4.8 Chloride Level 108 Carbon Dioxide Level 27.0 Anion Gap 7 Estimat Glomerular Filtration Rate 53 Naveen Buck MD Mar 26, 2017 17:43
[2017-03-26] MEDS: FENOFIBRATE 145 MG TAB PO SCH (21:15)
[2017-03-26] MEDS: traZODone HCL 50 MG TAB PO SCH (21:15)
[2017-03-26] MEDS: DONEPEZIL HCL 5 MG TAB PO SCH (21:16)
[2017-03-27] VITALS: BP 147/63; PULSE 66; RESP 19; TEMP 97.7; O2SAT 94
[2017-03-27 04:00] VITALS: BP 132/63; PULSE 62; RESP 18; TEMP 97.4; O2SAT 96
[2017-03-27] MEDS: SODIUM CHLOR 0.9% 1000 ML INJ 1,000 ML IV SCH (07:18)
[2017-03-27 07:26] LABS: BICARBONATE 24.6 MEQ/L (21.0-32.0); POTASSIUM 4.5 MEQ/L (3.5-5.1)
[2017-03-27 08:00] VITALS: BP 142/65; PULSE 56; RESP 18; TEMP 97.8; O2SAT 94
[2017-03-27] MEDS: ASPIRIN EC 81 MG TABEC PO SCH (09:00)
[2017-03-27] MEDS: DOCUSATE SODIUM 50 MG/SENNA 8.6 MG TAB PO SCH (09:24)
[2017-03-27] MEDS: PRAVASTATIN SOD 40 MG TAB PO SCH (09:24)
[2017-03-27] MEDS: CHOLECALCIFEROL (VIT D3) 1000 UNIT TAB PO SCH (09:24)
[2017-03-27] MEDS: FLUoxetine HCL 10 MG CAP PO SCH (09:24)
[2017-03-27] MEDS: levETIRAcetam 500 MG TAB PO SCH (09:24)
[2017-03-27] MEDS: busPIRone HCL 5 MG TAB PO SCH (09:24)
[2017-03-27] MEDS: FAMOTIDINE 20 MG TAB PO SCH (09:24)
[2017-03-27] MEDS: risperiDONE 1 MG TAB PO SCH (09:24)
--- NOTE | 2017-03-27 09:50 | HHI.DCPOC ---
Discharge Care Plan Diagnosis: (1) TIA (transient ischemic attack) (2) Dementia (3) HTN (hypertension) (4) Seizure disorder Goals to Promote Your Health * To prevent worsening of your condition and complications * To maintain your health at the optimal level Directions to Meet Your Goals Take your medications as prescribed Follow your dietary instruction Follow activity as directed Keep your appointments as scheduled Take your immunizations and boosters as scheduled If your symptoms worsen call your PCP, if no PCP go to Urgent Care Center or Emergency Room Smoking is Dangerous to Your Health. Avoid second hand smoke Call the 24-hour hour crisis hotline for domestic abuse at Ladarius Rasheed MD Mar 27, 2017 09:50
--- NOTE | 2017-03-27 09:53 | HHI.DS ---
Discharge Summary Admission Date Mar 25, 2017 at 05:29 Discharge Date: Mar 27, 2017 Admitting Diagnosis Possible TIA (1) Schizophrenia Status: Chronic (2) Fall ICD Code: W19.XXXA - Unspecified fall, initial encounter (3) Tobacco abuse ICD Code: Z72.0 - Tobacco use (4) Dementia ICD Code: F03.90 - Unspecified dementia without behavioral disturbance (5) TIA (transient ischemic attack) ICD Code: G45.9 - Transient cerebral ischemic attack, unspecified Status: Acute Procedures None Brief History - From Admission A 71-year-old male with a PMH of HTN, Hyperlipidemia, Dementia, Schizophrenia and Tobacco Abuse who was sent to the ER from [facility] for eval after fall. Pt unable to provide much history, does not recall events. Per report, resident at facility witnessed patient trip over wheelchair, +head trauma, no apparent LOC. Noticed to have possible facial droop and slurred speech. Pt without complaints at this time. On exam pt edentulous, very mild droop, baseline unclear. BP 154/80, HR 71, O2 sat 99% on RA, Afebrile. CBC unremarkable. Chemistry essentially unremarkable except for GFR 62. Troponin negative. CT Abdomen no acute findings. CBC/BMP: 03/26/17 0631 03/27/17 0646 Significant Findings Laboratory Tests Test 03/25/17 03:50 03/26/17 06:31 03/27/17 06:46 Red Blood Count 4.40 MIL/MM3 (4.50-5.90) 4.42 MIL/MM3 (4.50-5.90) Monocytes (%) (Auto) 11.0 % (0.0-8.0) 11.8 % (0.0-8.0) Monocytes # (Auto) 1.0 TH/MM3 (0-0.9) Activated Partial Thromboplast Time 24.2 SEC (24.3-30.1) Sodium Level 134 MEQ/L (136-145) Estimat Glomerular Filtration Rate 62 ML/MIN (>89) 53 ML/MIN (>89) 57 ML/MIN (>89) Troponin I LESS THAN 0.02 NG/ML Mean Corpuscular Hemoglobin Concent 31.6 % (32.0-36.0) Creatinine 1.33 MG/DL (0.60-1.30) Albumin 3.3 GM/DL (3.4-5.0) Chloride Level 108 MEQ/L (98-107) 110 MEQ/L (98-107) Blood Urea Nitrogen 19 MG/DL (7-18) Imaging Last Impressions Head CT 03/25/17 0000 Signed Impressions: Service Date/Time: Saturday, March 25, 2017 03:59 - CONCLUSION: No acute disease. Humberto Connolly MD Carotid Artery Ultrasound 03/25/17 0000 Signed Impressions: Service Date/Time: Saturday, March 25, 2017 16:07 - CONCLUSION: No evidence of hemodynamically significant lesion. Brant King MD Brain MRI 03/25/17 0000 Signed Impressions: Service Date/Time: Saturday, March 25, 2017 10:51 - CONCLUSION: 1. Stable MRI of the brain compared to prior exam 04/12/2015. 2. Stable bilateral cortical atrophy and chronic white matter changes. 3. Chronic sinus disease in the left maxillary sinus. Derick Ordonez MD PE at Discharge General: Elderly male in no acute distress. Heart: Regular rate and rhythm. No murmur. Lungs: Clear to auscultation bilaterally. No wheezes, rales, or rhonchi. Breathing is nonlabored. Abdomen: Soft, nontender, nondistended. Extremities: No lower extremity edema. Psych: Alert, confused. Pt update on day of discharge The patient has no complaints at this time. Denies chest pain, dyspnea, nausea, vomiting. Denies numbness/tingling/weakness in his extremities. States that he is ready to go home. Hospital Course The patient was admitted for further evaluation of TIA and head injury following fall. Neurology was consulted. Patient had improvement in his symptoms. He had no further episodes while in the hospital. His creatinine increased slightly. He was given IV hydration and creatinine improved. He was felt to be stable for return to SNF. Pt Condition on Discharge: Stable Discharge Disposition: Discharge to SNF Discharge Time: <= 30 minutes Discharge Instructions DIET: Follow Instructions for: As Tolerated, No Restrictions Activities you can perform: See Additionl Instruction Other Activity Instructions: With assistance Follow up Referrals: Neurology - 2 Weeks with Naveen Buck MD PCP Follow-up - 2 Weeks Continued Medications: Acetaminophen (Tylenol) 325 Mg Tab 650 MG PO Q8HR for Pain Management, TAB [address] (Aspirin EC) 325 Mg Tabdr 325 MG PO DAILY, TAB 0 Refills Atorvastatin (Atorvastatin) 20 Mg Tab 20 MG PO HS for Cholesterol Management, #30 TAB 0 Refills Buspirone (Buspirone) 5 Mg Tab 5 MG PO TID for Anxiety, TAB 0 Refills Cholecalciferol (Vitamin D-1000) 1,000 Unit Tab 1000 UNITS PO DAILY for Nutritional Supplement, #1 BOTTLE 0 Refills Donepezil (Donepezil) 10 Mg Tab 10 MG PO HS for Dementia, #30 TAB 0 Refills Fenofibrate Micronized (Fenofibrate Micronized) 134 Mg Cap 134 MG PO HS, #30 CAP 0 Refills Fluoxetine (Prozac) 10 Mg Cap 10 MG PO DAILY, #30 CAP 0 Refills Levetiracetam (Keppra) 500 Mg Tab 500 MG PO BID for Control Seizures, #60 TAB 0 Refills Ranitidine (Zantac) 150 Mg Tab 75 MG PO DAILY for Reduce Stomach Acid, #60 TAB 0 Refills Risperidone (Risperdal) 4 Mg Tab 4 MG PO Q12HR, #60 TAB 0 Refills Trazodone (Trazodone) 50 Mg Tab 50 MG PO HS for Control Depression, #30 TAB 0 Refills Trifluoperazine (Trifluoperazine) 10 Mg Tab 10 MG PO HS, #30 TAB 0 Refills Discontinued Medications: Metformin (Metformin) 1,000 Mg Tab 1000 MG PO DAILY for Blood Sugar Management, #30 TAB 0 Refills With a meal Metformin (Metformin) 500 Mg Tab 500 MG PO HS for Blood Sugar Management, #30 TAB 0 Refills With a meal Ladarius Rasheed MD Mar 27, 2017 09:53
== END 2017-03-27 11:50 | DRG 914 ==
LOC: NEPE 03:21 → NEDA 05:15 → OBSVTOIN 05:29 → N05A 08:35
PROVIDERS: ADMIT Family Medicine; ATTEND Family Medicine
DX: S09.90XA Unspecified injury of head, initial encounter (principal); G45.9 Transient cerebral ischemic attack, unspecified; E11.22 Type 2 diabetes mellitus with diabetic chronic kidney disease; F03.90 Unspecified dementia, unspecified severity, without behavioral disturbance, psychotic disturbance, mood disturbance, and anxiety; N18.9 Chronic kidney disease, unspecified; I12.9 Hypertensive chronic kidney disease with stage 1 through stage 4 chronic kidney disease, or unspecified chronic kidney disease; E78.5 Hyperlipidemia, unspecified; F25.9 Schizoaffective disorder, unspecified; W01.198A Fall on same level from slipping, tripping and stumbling with subsequent striking against other object, initial encounter; Y92.129 Unspecified place in nursing home as the place of occurrence of the external cause; Z72.0 Tobacco use; Z79.84 Long term (current) use of oral hypoglycemic drugs; Z87.730 Personal history of (corrected) cleft lip and palate; Z91.030 Bee allergy status; Z96.641 Presence of right artificial hip joint
CPT/HCPCS: 70450; 70551; 80048; 80053; 84484; 85025; 85610; 85730; 93005; 93880; J7030

== ENCOUNTER 2017-04-12 13:04 | Emergency (ER) | payer MEDICARE, OTHER ==
[~2017-04-12] VITALS: Ht 182.9 cm; Wt 75.0 kg
[~2017-04-12 13:04] MED LIST changes: -3-IN3MIS; -ACET325 PO; -ASPI325T PO; +ASPI325T33 PO; +ATOR20TA15 PO; -BUSP5 PO; +BUSP5TAB PO; -DONE10TA14 OR; +DONE10TA7 PO; -FENO134C OR; +FENO134C PO; -RANI300T PO; +RISP4TAB41 PO; -RISPM2 PO; -TRAZ100T4 PO; +TRAZ50TA12 PO; +TRIF10TA PO; -TRIF1TAB2 PO; +TYLE325T PO; +VITA1000 PO; -WALKER ROLLING; -WALKER STANDARD; +ZANT150T2 PO; -ZOCO40TA PO
[2017-04-12] MEDS ORDERED: SODIUM CHLORIDE 0.9% FLUSH 10 ML FLUSH IVF PRN (13:15)
[2017-04-12] MEDS ORDERED: LORazepam 2 MG/ML VIAL IVS ONE (13:15)
[2017-04-12] MEDS ORDERED: levETIRAcetam INJ 1,000 MG in SODIUM CHLORIDE 0.9% INJ 100 ML IV ONE (13:15)
[2017-04-12 13:18] VITALS: BP 122/58; PULSE 97; RESP 20; TEMP 99.8; O2SAT 96
[2017-04-12] MEDS ORDERED: levETIRAcetam 1000 MG INJ 100 ML IV ONE (13:30)
[2017-04-12] MEDS ORDERED: RANI1TAB5 PO (13:50)
[2017-04-12] MEDS ORDERED: DIFFCHW PO (13:50)
[2017-04-12] MEDS ORDERED: CLON.1T T-DERMAL (13:50)
[2017-04-12] MEDS ORDERED: SERO25TA PO (13:50)
[2017-04-12] MEDS ORDERED: ABH GEL TOPICAL (13:50)
--- NOTE | 2017-04-12 13:56 | RADRPT ---
EXAM DATE/TIME: 04/12/2017 13:47 [place] COMPARISON: CT BRAIN W/O CONTRAST, March 25, 2017, 3:59. INDICATIONS : Head pain due to seizure. RADIATION DOSE: 34.69 CTDIvol (mGy) MEDICAL HISTORY : Dementia. Seizures. Diabetes mellitus type 2.HTN SURGICAL HISTORY : None. ENCOUNTER: Initial ACUITY: 1 day PAIN SCALE: 3/10 LOCATION: Bilateral cranial TECHNIQUE: Multiple contiguous axial images were obtained of the head. Using automated exposure control and adj ustment of the mA and/or kV according to patient size, radiation dose was kept as low as reasonably a chievable to obtain optimal diagnostic quality images. DICOM format image data is available electro nically for review and comparison. FINDINGS: CEREBRUM: [id number] diffuse cerebral volume loss. Mild periventricular white matter hypodensities. The v entricles are normal for age. No evidence of midline shift, mass lesion, hemorrhage or acute infarct ion. No extra-axial fluid collections are seen. POSTERIOR FOSSA: The cerebellum and brainstem are intact. The 4th ventricle is midline. The cerebellopontine angle i s unremarkable. EXTRACRANIAL: The visualized portion of the orbits is intact. SKULL: The calvaria is intact. No evidence of skull fracture. CONCLUSION: 1. Senescent changes with mild periventricular small vessel white matter ischemic demyelination. 2. No acute intracranial abnormality or significant interval change. Carlos Morejon MD on April 12, 2017 at 13:53 Board Certified Radiologist. This report was verified electronically.
[2017-04-12 14:18] LABS: AUTOMATED NEUTROPHIL # 7.8 TH/MM3 (1.8-7.7); BASOPHIL # 0.1 TH/MM3 (0-0.2); BASOPHIL % 0.5 % (0.0-2.0); EOSINOPHIL % 0.2 % (0.0-4.0); HEMATOCRIT 41.5 % (39.0-51.0); HEMO FLAGS DIFF FINAL; LYMPH % 20.5 % (9.0-44.0); LYMPHOCYTE # 2.3 TH/MM3 (1.0-4.8); MEAN CELL VOLUME 94.8 FL (80.0-100.0); MEAN CORPUSCULAR HGB CONC 31.7 % (32.0-36.0); MONO % 10.1 % (0.0-8.0); NEUT % 68.7 % (16.0-70.0); PLATELET COUNT 355 TH/MM3 (150-450); RED BLOOD COUNT 4.38 MIL/MM3 (4.50-5.90); RED CELL DISTRIBUTION WIDTH 14.9 % (11.6-17.2); WHITE BLOOD COUNT 11.4 TH/MM3 (4.0-11.0)
[2017-04-12 14:45] LABS: ALT (GPT) 30 U/L (12-78); ANION GAP 15 MEQ/L (5-15); AST (GOT) 36 U/L (15-37); BLOOD UREA NITROGEN 30 MG/DL (7-18); CHLORIDE 104 MEQ/L (98-107); GLOMERULAR FILTRATION RATE 39 ML/MIN (>89); SODIUM (NA) 140 MEQ/L (136-145)
[2017-04-12 14:46] LABS: ALKALINE PHOSPHATASE 64 U/L (45-117); POTASSIUM 4.2 MEQ/L (3.5-5.1); TOTAL BILIRUBIN ADULT 0.6 MG/DL (0.2-1.0)
[2017-04-12 15:39] LABS: BLOOD, URINE LARGE (NEG); GLUCOSE,URINE NEG (NEG); KETONE, URINE NEG (NEG); MUCUS URINE FEW /lpf (OCC); NITRITE,URINE NEG (NEG); PH, URINE 5.5 (5.0-8.5); URINE COLOR YELLOW (YELLW/STRAW)
[2017-04-12 16:57] LABS: CKMB 2.2 NG/ML (0.5-3.6)
--- NOTE | 2017-04-12 17:04 | PD ---
HPI Chief Complaint: Seizure Time Seen by Provider: 13:14 Travel History International Travel<30 days: No Contact w/Intl Traveler<30days: No Traveled to known affect area: No History of Present Illness HPI 71-year-old male came to the emergency room with history of seizure episode at the snf. Patient has history of dementia and schizophrenia and is on a lot of psych medications. He is also on Keppra for his seizures. The staff at the snf called EMS because he was having a seizure. Upon paramedics arrival they noticed that he was on wheelchair with padding around his head and the staff supporting him. He appeared to be poorly responsive. En route his mental status started to improve a little but then he had another episode of seizure. He received 2 mg of lorazepam by the paramedics. Upon arrival patient was at his baseline again and then had another seizure. He was given 2 more milligrams of Ativan. Given his altered mental status he was not a reliable historian. Vital signs were stable. [facility] Past Medical History Narrative Medical List of his past medical, surgical, social and family history is reviewed from the nursing note. Hx Anticoagulant Therapy: No Arthritis: No Asthma: No Autoimmune Disease: No Blood Disorders: No Anxiety: Yes Depression: Yes Heart Rhythm Problems: No Cancer: No Cardiovascular Problems: Yes High Cholesterol: Yes Chemotherapy: No Chest Pain: No Congestive Heart Failure: No COPD: No Cerebrovascular Accident: Yes Dementia: Yes Diabetes: Yes (Type 2 Diabetes) Patient Takes Glucophage: No Diminished Hearing: No Endocrine: Yes Gastrointestinal Disorders: No GERD: No Genitourinary: Yes (KIDNEY STONES) Hiatal Hernia: No Hypertension: Yes Immune Disorder: No Implanted Vascular Access Dvce: Yes Kidney Stones: Yes Musculoskeletal: No Neurologic: No Psychiatric: Yes (history of schizophrenia) Reproductive: No Respiratory: No Immunizations Current: No Migraines: No Radiation Therapy: No Renal Failure: No Schizophrenia: Yes Seizures: Yes (OVER 5 YEARS AGO) Sickle Cell Disease: No Sleep Apnea: No Thyroid Disease: No Ulcer: No PNEUMOCCOCAL Vaccine (Year): 2008 Past Surgical History Abdominal Surgery: No AICD: No Arteriovenous Shunt: No Cardiac Surgery: No Ear Surgery: No Endocrine Surgery: No Eye Surgery: No Genitourinary Surgery: No Gynecologic Surgery: No Hysterectomy: No Insulin Pump: No Joint Replacement: Yes (right hip joint replacement) Oral Surgery: Yes (cleft palate repair) Pacemaker: No Thoracic Surgery: No Tonsillectomy: Yes Other Surgery: Yes (CLEFT PALATE/CLEFT LIP REPAIR.) Social History Alcohol Use: No Tobacco Use: Yes (2.5 PPD) Substance Use: No Allergies-Medications (Allergen,Severity, Reaction): Coded Allergies: bee venom protein (honey bee) (Unverified Allergy, Severe, PASSES OUT, 04/13/17) risperidone (Unverified Allergy, Intermediate, Rash, 04/13/17) Comments List of his allergies reviewed from the nursing note. Reported Meds & Prescriptions Reported Meds & Active Scripts Active Reported Seroquel (Quetiapine Fumarate) 25 Mg Tab 25 Mg PO BID Diff-Stat (Probiotic Product) 471 Mg Cap 1 Cap PO DAILY [id number] HR Patch (Clonidine) 0.1 Mg/24 Hr Patch 1 Patch T-DERMAL SUNDAY [Abh Gel] 1 Applic TOPICAL Q8HR PRN Ranitidine 75 (Ranitidine HCl) 75 Mg Tab 75 Mg PO DAILY Take 30 to 60 minutes before eating food or drinking beverages that cause heartburn. Tylenol (Acetaminophen) 325 Mg Tab 650 Mg PO Q8HR Trifluoperazine (Trifluoperazine HCl) 10 Mg Tab 10 Mg PO HS Trazodone (Trazodone HCl) 50 Mg Tab 50 Mg PO HS Prozac (Fluoxetine HCl) 10 Mg Cap 10 Mg PO DAILY Keppra (Levetiracetam) 500 Mg Tab 500 Mg PO BID Fenofibrate Micronized 134 Mg Cap 134 Mg PO HS Donepezil 10 Mg Tab 10 Mg PO HS Vitamin D-1000 (Cholecalciferol) 1,000 Unit Tab 1,000 Units PO DAILY Buspirone (Buspirone HCl) 5 Mg Tab 5 Mg PO TID Atorvastatin (Atorvastatin Calcium) 20 Mg Tab 20 Mg PO HS Aspirin EC (Aspirin) 325 Mg Tabdr 325 Mg PO DAILY Narrative Medication List of his home medications reviewed from the nursing note. Review of Systems Except as stated in HPI: all other systems reviewed are Neg Neurologic: Positive: Seizures Physical Exam Narrative GENERAL: Altered mental status, GCS of 10 SKIN: Focused skin assessment warm/dry. HEAD: Atraumatic. Normocephalic. EYES: Pupils equal and round. No scleral icterus. No injection or drainage. ENT: No nasal bleeding or discharge. Mucous membranes pink and moist. NECK: Trachea midline. No JVD. CARDIOVASCULAR: Regular rate and rhythm. No murmur appreciated. RESPIRATORY: No accessory muscle use. Clear to auscultation. Breath sounds equal bilaterally. GASTROINTESTINAL: Abdomen soft, non-tender, nondistended. Hepatic and splenic margins not palpable. MUSCULOSKELETAL: No obvious deformities. No clubbing. No cyanosis. No edema. NEUROLOGICAL: GCS of 10. Motor grossly within normal limits. PSYCHIATRIC: Unable to assess Data Data Last Documented VS Vital Signs Date Time Temp Pulse Resp B/P (MAP) Pulse Ox O2 Delivery O2 Flow Rate FiO2 04/12/17 17:05 78 18 151/80 (103) 100 04/12/17 13:21 Room Air 04/12/17 13:18 99.8 Orders Orders Complete Blood Count With Diff (04/12/17 13:14) Ct Brain W/O Iv Contrast(Rout) (04/12/17 ) Blood Glucose (04/12/17 13:14) Ecg Monitoring (04/12/17 13:14) Iv Access Insert/Monitor (04/12/17 13:14) Oximetry (04/12/17 13:14) Comprehensive Metabolic Panel (04/12/17 13:14) Sodium Chloride 0.9% Flush (Ns Flush) (04/12/17 13:15) Lorazepam Inj (Ativan Inj) (04/12/17 13:15) Ua Includes Microscopic (04/12/17 13:14) Levetiracetam 1000 Mg Inj (Keppra 1000 M (04/12/17 13:30) Creatine Kinase (Cpk) (04/12/17 16:00) CKMB (04/12/17 13:40) CKMB% (04/12/17 13:40) Ed Discharge Order (04/12/17 17:03) Labs Laboratory Tests Test 04/12/17 13:40 04/12/17 13:45 White Blood Count 11.4 TH/MM3 Red Blood Count 4.38 MIL/MM3 Hemoglobin 13.1 GM/DL Hematocrit 41.5 % Mean Corpuscular Volume 94.8 FL Mean Corpuscular Hemoglobin 30.0 PG Mean Corpuscular Hemoglobin Concent 31.7 % Red Cell Distribution Width 14.9 % Platelet Count 355 TH/MM3 Mean Platelet Volume 7.9 FL Neutrophils (%) (Auto) 68.7 % Lymphocytes (%) (Auto) 20.5 % Monocytes (%) (Auto) 10.1 % Eosinophils (%) (Auto) 0.2 % Basophils (%) (Auto) 0.5 % Neutrophils # (Auto) 7.8 TH/MM3 Lymphocytes # (Auto) 2.3 TH/MM3 Monocytes # (Auto) 1.2 TH/MM3 Eosinophils # (Auto) 0.0 TH/MM3 Basophils # (Auto) 0.1 TH/MM3 CBC Comment DIFF FINAL Differential Comment Blood Urea Nitrogen 30 MG/DL Creatinine 1.74 MG/DL Random Glucose 146 MG/DL Total Protein 7.6 GM/DL Albumin 3.6 GM/DL Calcium Level 9.2 MG/DL Alkaline Phosphatase 64 U/L Aspartate Amino Transf (AST/SGOT) 36 U/L Alanine Aminotransferase (ALT/SGPT) 30 U/L Total Bilirubin 0.6 MG/DL Sodium Level 140 MEQ/L Potassium Level 4.2 MEQ/L Chloride Level 104 MEQ/L Carbon Dioxide Level 21.0 MEQ/L Anion Gap 15 MEQ/L Estimat Glomerular Filtration Rate 39 ML/MIN Total Creatine Kinase 341 U/L Creatine Kinase MB 2.2 NG/ML Creatine Kinase MB % 0.6 % Urine Color YELLOW Urine Turbidity CLEAR Urine pH 5.5 Urine Specific [place] 1.027 Urine Protein TRACE mg/dL Urine Glucose (UA) NEG mg/dL Urine Ketones NEG mg/dL Urine Occult Blood LARGE Urine Nitrite NEG Urine Bilirubin NEG Urine Urobilinogen LESS THAN 2.0 MG/DL Urine Leukocyte Esterase NEG Urine RBC 95 /hpf Urine WBC 17 /hpf Urine Mucus FEW /lpf MDM Medical Decision Making Medical Screen Exam Complete: Yes Emergency Medical Condition: Yes Medical Record Reviewed: Yes Differential Diagnosis Intracranial bleed, electrolyte abnormality, withdrawal seizure Narrative Course 5 PM blood test results of back and within acceptable limits. Head CT is negative for any head bleed. Patient was given 1 g of Keppra bolus. Currently he is back to his baseline status. Patient has history of seizure disorder and hence this is not something new for him. I am comfortable discharging him back to the snf. Procedures EKG Prior to Arrival: No Diagnosis Primary Impression: Seizure disorder Additional Impression: Dementia Qualified Codes: F03.91 - Unspecified dementia with behavioral disturbance Referrals: Primary Care Physician Additional Instructions: Follow-up with primary care. Continue giving the seizure medications. Disposition: 01 DISCHARGE HOME Condition: Stable Sandeep Ahmadi MD Apr 12, 2017 17:04
[2017-04-12 17:05] VITALS: BP 151/80; PULSE 78; RESP 18; O2SAT 100
== END 2017-04-12 18:30 | disposition home or self-care (01) ==
LOC: NEPE 13:04
DX: G40.909 Epilepsy, unspecified, not intractable, without status epilepticus (principal); F03.91 Unspecified dementia, unspecified severity, with behavioral disturbance; E11.9 Type 2 diabetes mellitus without complications; I10 Essential (primary) hypertension; E78.00 Pure hypercholesterolemia, unspecified; F17.200 Nicotine dependence, unspecified, uncomplicated; Z86.59 Personal history of other mental and behavioral disorders; Z86.79 Personal history of other diseases of the circulatory system; Z87.448 Personal history of other diseases of urinary system; Z86.69 Personal history of other diseases of the nervous system and sense organs
CPT/HCPCS: 70450; 80053; 81001; 82550; 82552; 85025; 96365; 96375; 99285; J1953; J2060

== ENCOUNTER 2017-04-13 04:24 | Emergency (ER) | payer MEDICARE, OTHER ==
[~2017-04-13 04:24] MED LIST changes: +ABH GEL TOPICAL; +CLON.1T T-DERMAL; +DIFFCHW PO; +RANI1TAB5 PO; -RISP4TAB41 PO; +SERO25TA PO; -ZANT150T2 PO
[2017-04-13 04:29] VITALS: BP 175/86; PULSE 76; RESP 18; TEMP 98.3; O2SAT 100
--- NOTE | 2017-04-13 05:02 | PD ---
HPI . Seizure Chief Complaint: Seizure Time Seen by Provider: 04:32 Travel History International Travel<30 days: No Contact w/Intl Traveler<30days: No Traveled to known affect area: No History of Present Illness HPI This is a patient with a history of dementia him a seizure disorder and schizophrenia who lives in a half-way. He presents to us with the chief complaint of seizures 7 tonight. The [facility] report is that he is having focal seizures where he will stare off to the left side. These last for 15- 30 seconds. He was treated by EMS with Ativan 2 mg IV. No further history is obtainable from the patient. I am told this patient is normally combative. PFSH Past Medical History Hx Anticoagulant Therapy: No Arthritis: No Asthma: No Autoimmune Disease: No Blood Disorders: No Anxiety: Yes Depression: Yes Heart Rhythm Problems: No Cancer: No Cardiovascular Problems: Yes High Cholesterol: Yes Chemotherapy: No Chest Pain: No Congestive Heart Failure: No COPD: No Cerebrovascular Accident: Yes Dementia: Yes Diabetes: Yes (Type 2 Diabetes) Diminished Hearing: No Endocrine: Yes Gastrointestinal Disorders: No GERD: No Genitourinary: Yes (KIDNEY STONES) Hiatal Hernia: No Hypertension: Yes Immune Disorder: No Implanted Vascular Access Dvce: Yes Kidney Stones: Yes Musculoskeletal: No Neurologic: No Psychiatric: Yes (history of schizophrenia) Reproductive: No Respiratory: No Immunizations Current: No Migraines: No Radiation Therapy: No Renal Failure: No Schizophrenia: Yes Seizures: Yes (OVER 5 YEARS AGO) Sickle Cell Disease: No Sleep Apnea: No Thyroid Disease: No Ulcer: No PNEUMOCCOCAL Vaccine (Year): 2008 Past Surgical History Abdominal Surgery: No AICD: No Arteriovenous Shunt: No Cardiac Surgery: No Ear Surgery: No Endocrine Surgery: No Eye Surgery: No Genitourinary Surgery: No Gynecologic Surgery: No Hysterectomy: No Insulin Pump: No Joint Replacement: Yes (right hip joint replacement) Oral Surgery: Yes (cleft palate repair) Pacemaker: No Thoracic Surgery: No Tonsillectomy: Yes Other Surgery: Yes (CLEFT PALATE/CLEFT LIP REPAIR.) Social History Alcohol Use: No Tobacco Use: Yes (2.5 PPD) Substance Use: No Allergies-Medications (Allergen,Severity, Reaction): Coded Allergies: bee venom protein (honey bee) (Unverified Allergy, Severe, PASSES OUT, 04/13/17) risperidone (Unverified Allergy, Intermediate, Rash, 04/13/17) Reported Meds & Prescriptions Reported Meds & Active Scripts Active Reported Seroquel (Quetiapine Fumarate) 25 Mg Tab 25 Mg PO BID Diff-Stat (Probiotic Product) 471 Mg Cap 1 Cap PO DAILY [id number] 168 HR Patch (Clonidine) 0.1 Mg/24 Hr Patch 1 Patch T-DERMAL SUNDAY [Abh Gel] 1 Applic TOPICAL Q8HR PRN Ranitidine 75 (Ranitidine HCl) 75 Mg Tab 75 Mg PO DAILY Take 30 to 60 minutes before eating food or drinking beverages that cause heartburn. Tylenol (Acetaminophen) 325 Mg Tab 650 Mg PO Q8HR Trifluoperazine (Trifluoperazine HCl) 10 Mg Tab 10 Mg PO HS Trazodone (Trazodone HCl) 50 Mg Tab 50 Mg PO HS Prozac (Fluoxetine HCl) 10 Mg Cap 10 Mg PO DAILY Keppra (Levetiracetam) 500 Mg Tab 500 Mg PO BID Fenofibrate Micronized 134 Mg Cap 134 Mg PO HS Donepezil 10 Mg Tab 10 Mg PO HS Vitamin D-1000 (Cholecalciferol) 1,000 Unit Tab 1,000 Units PO DAILY Buspirone (Buspirone HCl) 5 Mg Tab 5 Mg PO TID Atorvastatin (Atorvastatin Calcium) 20 Mg Tab 20 Mg PO HS Aspirin EC (Aspirin) 325 Mg Tabdr 325 Mg PO DAILY Review of Systems ROS Limitations: Poor Historian Physical Exam Narrative GENERAL: The patient is lying on the stretcher with his eyes open in no acute distress. SKIN: Warm and dry with no rash or lesions. HEAD: Normocephalic/atraumatic. EYES: Pupils are equal. Extraocular movements are intact. He is blinking normally. ENT: Mucous membranes moist. NECK: Neck supple. CARDIOVASCULAR: Regular rate and rhythm. RESPIRATORY: Nonlabored respirations. MUSCULOSKELETAL: Atraumatic. NEUROLOGICAL: Nonverbal. No obvious cranial nerve deficits. Alert. Responds to painful stimuli. PSYCHIATRIC: Unable to assess. Data Data Last Documented VS Vital Signs Date Time Temp Pulse Resp B/P (MAP) Pulse Ox O2 Delivery O2 Flow Rate FiO2 04/13/17 04:29 98.3 76 18 175/86 (115) 100 Orders Orders Ed Discharge Order (04/13/17 06:22) MDM Medical Decision Making Medical Screen Exam Complete: Yes Emergency Medical Condition: Yes Medical Record Reviewed: Yes (patient was seen here approximately 12 hours ago for the same thing. He had a CT of the head, CBC, CMP and urinalysis which were all unremarkable. He was loaded with Keppra 1 g IV.) Differential Diagnosis Differential diagnosis of seizure includes but is not limited to epilepsy, electrolyte abnormality, previous stroke, closed head injury Narrative Course This is a patient with a known seizure disorder and dementia who presents with increased frequency of seizures. He has been thoroughly evaluated here about 12 hours ago. There is really nothing further that I can offer for this patient. Diagnosis Primary Impression: Seizure disorder Patient Instructions: General Instructions, Nonepileptic Seizures (GEN) Disposition: 01 DISCHARGE HOME Condition: Stable Ara Le MD Apr 13, 2017 05:02
== END 2017-04-13 12:24 | disposition home or self-care (01) ==
LOC: NEPC 04:24
DX: G40.909 Epilepsy, unspecified, not intractable, without status epilepticus (principal); F03.90 Unspecified dementia, unspecified severity, without behavioral disturbance, psychotic disturbance, mood disturbance, and anxiety; F41.9 Anxiety disorder, unspecified; F32.9 Major depressive disorder, single episode, unspecified; E11.9 Type 2 diabetes mellitus without complications; E78.00 Pure hypercholesterolemia, unspecified; I10 Essential (primary) hypertension; F20.9 Schizophrenia, unspecified; Z86.73 Personal history of transient ischemic attack (TIA), and cerebral infarction without residual deficits
CPT/HCPCS: 99283

== ENCOUNTER 2017-04-17 18:11 | Emergency (ER) | payer MEDICARE, OTHER ==
[2017-04-17 19:17] VITALS: BP 174/88; PULSE 87; RESP 20; TEMP 97.9
[2017-04-17] MEDS ORDERED: levETIRAcetam INJ 500 MG in SODIUM CHLORIDE 0.9% INJ 100 ML IV ONE (20:30)
[2017-04-17] MEDS ORDERED: SODIUM CHLOR 0.9% 1000 ML INJ 1,000 ML IV ONE (20:45)
--- NOTE | 2017-04-17 20:46 | PD ---
HPI Chief Complaint: Psychiatric Symptoms Time Seen by Provider: 20:19 Travel History International Travel<30 days: No Contact w/Intl Traveler<30days: No Traveled to known affect area: No History of Present Illness HPI 71-year-old male was brought in from local shelter for abnormal lab results and aggressive behavior. Patient has history of schizophrenia, hyperlipidemia, hypertension, GERD, depressive disorder, diabetes, type I, delusional disorder, vascular dementia, seizure, TIA. Patient was reported by shelter staff that he has been refusing to take his medications. Blood test done yesterday shows severely low level of Keppra. Patient lab work also shows sodium of 151, BUN 37, creatinine 0.8. Patient also has been aggressive in the shelter and poor appetite recently. Patient however has been sleeping in the room since arrival. PFSH Past Medical History Hx Anticoagulant Therapy: No Arthritis: No Asthma: No Autoimmune Disease: No Blood Disorders: No Anxiety: Yes Depression: Yes Heart Rhythm Problems: No Cancer: No Cardiovascular Problems: Yes High Cholesterol: Yes Chemotherapy: No Chest Pain: No Congestive Heart Failure: No COPD: No Cerebrovascular Accident: Yes Dementia: Yes Diabetes: Yes Patient Takes Glucophage: No Diminished Hearing: No Endocrine: Yes Gastrointestinal Disorders: No GERD: Yes Genitourinary: Yes (KIDNEY STONES) Hiatal Hernia: No Hypertension: Yes Immune Disorder: No Implanted Vascular Access Dvce: Yes Kidney Stones: Yes Musculoskeletal: No Neurologic: No Psychiatric: Yes (history of schizophrenia, delusional disorder) Reproductive: No Respiratory: No Immunizations Current: No Migraines: No Radiation Therapy: No Renal Failure: No Schizophrenia: Yes Seizures: Yes Sickle Cell Disease: No Sleep Apnea: No Thyroid Disease: No Ulcer: No Tetanus Vaccination: Unknown PNEUMOCCOCAL Vaccine (Year): 2008 Past Surgical History Abdominal Surgery: No AICD: No Arteriovenous Shunt: No Cardiac Surgery: No Ear Surgery: No Endocrine Surgery: No Eye Surgery: No Genitourinary Surgery: No Gynecologic Surgery: No Hysterectomy: No Insulin Pump: No Joint Replacement: Yes (right hip joint replacement) Oral Surgery: Yes (cleft palate repair) Pacemaker: No Thoracic Surgery: No Tonsillectomy: Yes Other Surgery: Yes (CLEFT PALATE/CLEFT LIP REPAIR.) Social History Alcohol Use: No Tobacco Use: No Substance Use: No Allergies-Medications (Allergen,Severity, Reaction): Coded Allergies: bee venom protein (honey bee) (Unverified Allergy, Severe, PASSES OUT, 04/13/17) risperidone (Unverified Allergy, Intermediate, Rash, 04/13/17) Reported Meds & Prescriptions Reported Meds & Active Scripts Active Reported Seroquel (Quetiapine Fumarate) 25 Mg Tab 25 Mg PO BID Diff-Stat (Probiotic Product) 471 Mg Cap 1 Cap PO DAILY [id number] 168 HR Patch (Clonidine) 0.1 Mg/24 Hr Patch 1 Patch T-DERMAL SUNDAY [Abh Gel] 1 Applic TOPICAL Q8HR PRN Ranitidine 75 (Ranitidine HCl) 75 Mg Tab 75 Mg PO DAILY Take 30 to 60 minutes before eating food or drinking beverages that cause heartburn. Tylenol (Acetaminophen) 325 Mg Tab 650 Mg PO Q8HR Trifluoperazine (Trifluoperazine HCl) 10 Mg Tab 10 Mg PO HS Trazodone (Trazodone HCl) 50 Mg Tab 50 Mg PO HS Prozac (Fluoxetine HCl) 10 Mg Cap 10 Mg PO DAILY Keppra (Levetiracetam) 500 Mg Tab 500 Mg PO BID Fenofibrate Micronized 134 Mg Cap 134 Mg PO HS Donepezil 10 Mg Tab 10 Mg PO HS Vitamin D-1000 (Cholecalciferol) 1,000 Unit Tab 1,000 Units PO DAILY Buspirone (Buspirone HCl) 5 Mg Tab 5 Mg PO TID Atorvastatin (Atorvastatin Calcium) 20 Mg Tab 20 Mg PO HS Aspirin EC (Aspirin) 325 Mg Tabdr 325 Mg PO DAILY Review of Systems General / Constitutional: No: Fever Eyes: No: Visual changes HENT: No: Headaches Cardiovascular: No: Chest Pain or Discomfort Respiratory: No: Shortness of Breath Gastrointestinal: No: Abdominal Pain Genitourinary: No: Dysuria Musculoskeletal: No: Pain Skin: No Rash Neurologic: No: Weakness Psychiatric: No: Depression Endocrine: No: Polydipsia Hematologic/Lymphatic: No: Easy Bruising Physical Exam Narrative GENERAL: Well-nourished, well-developed patient. SKIN: Focused skin assessment warm/dry. HEAD: Normocephalic. EYES: No scleral icterus. No injection or drainage. NECK: Supple, trachea midline. No JVD or lymphadenopathy. CARDIOVASCULAR: Regular rate and rhythm without murmurs, gallops, or rubs. RESPIRATORY: Breath sounds equal bilaterally. No accessory muscle use. GASTROINTESTINAL: Abdomen soft, non-tender, nondistended. MUSCULOSKELETAL: No cyanosis, or edema. BACK: Nontender without obvious deformity. No CVA tenderness. Patient sleep in the room. Patient has no complaint now. Patient can moves all extremities well. No obvious focal neurological deficit. Data Data Last Documented VS Vital Signs Date Time Temp Pulse Resp B/P (MAP) Pulse Ox O2 Delivery O2 Flow Rate FiO2 04/17/17 19:17 97.9 87 20 174/88 (116) Orders Orders Complete Blood Count With Diff (04/17/17 20:27) Basic Metabolic Panel (Bmp) (04/17/17 20:27) Iv Access Insert/Monitor (04/17/17 20:27) Levetiracetam Inj (Keppra Inj) (04/17/17 20:30) Sodium Chlor 0.9% 1000 Ml Inj (Ns 1000 M (04/17/17 20:45) Labs Laboratory Tests Test 04/17/17 20:07 White Blood Count 13.3 TH/MM3 Red Blood Count 4.98 MIL/MM3 Hemoglobin 15.1 GM/DL Hematocrit 47.4 % Mean Corpuscular Volume 95.1 FL Mean Corpuscular Hemoglobin 30.4 PG Mean Corpuscular Hemoglobin Concent 31.9 % Red Cell Distribution Width 14.6 % Platelet Count 434 TH/MM3 Mean Platelet Volume 8.1 FL Neutrophils (%) (Auto) 72.4 % Lymphocytes (%) (Auto) 15.5 % Monocytes (%) (Auto) 9.5 % Eosinophils (%) (Auto) 1.8 % Basophils (%) (Auto) 0.8 % Neutrophils # (Auto) 9.6 TH/MM3 Lymphocytes # (Auto) 2.1 TH/MM3 Monocytes # (Auto) 1.3 TH/MM3 Eosinophils # (Auto) 0.2 TH/MM3 Basophils # (Auto) 0.1 TH/MM3 CBC Comment DIFF FINAL Differential Comment Blood Urea Nitrogen 40 MG/DL Creatinine 1.28 MG/DL Random Glucose 98 MG/DL Calcium Level 10.1 MG/DL Sodium Level 147 MEQ/L Potassium Level 4.1 MEQ/L Chloride Level 112 MEQ/L Carbon Dioxide Level 24.1 MEQ/L Anion Gap 11 MEQ/L Estimat Glomerular Filtration Rate 55 ML/MIN MDM Medical Decision Making Medical Screen Exam Complete: Yes Emergency Medical Condition: Yes Interpretation(s) 23:24 PM. CBC WBC 13.3. 72 neutrophil. Sodium 147. Chloride 112. BUN 40. Creatinine 1.28. Differential Diagnosis Differential diagnosis including acute exacerbation of dementia state, delirium , psychosis, schizophrenia, electrolyte abnormality, dehydration. Narrative Course 71-year-old male was sent to the ED from local shelter for refusing to take medications, poor appetite, aggressive behavior. Patient has history of seizure, dementia and schizophrenia. Keppra 500 mg IV given. Normal saline solution 1 L IV bolus. 23:25 PM. Electrolyte tubercle of dehydration. Patient was given IV fluid. 23:27 PM. Patient is medically clear for psychiatric evaluation. Diagnosis Primary Impression: Dehydration Additional Impression: Hypernatremia Gianni Del Rio MD Apr 17, 2017 20:46
[2017-04-17 21:04] LABS: AUTOMATED NEUTROPHIL # 9.6 TH/MM3 (1.8-7.7); BASOPHIL # 0.1 TH/MM3 (0-0.2); BASOPHIL % 0.8 % (0.0-2.0); EOSINOPHIL # 0.2 TH/MM3 (0-0.4); EOSINOPHIL % 1.8 % (0.0-4.0); HEMATOCRIT 47.4 % (39.0-51.0); HEMO FLAGS DIFF FINAL; LYMPH % 15.5 % (9.0-44.0); LYMPHOCYTE # 2.1 TH/MM3 (1.0-4.8); MEAN CELL VOLUME 95.1 FL (80.0-100.0); MEAN CORPUSCULAR HEMOGLOBIN 30.4 PG (27.0-34.0); MEAN CORPUSCULAR HGB CONC 31.9 % (32.0-36.0); MONO % 9.5 % (0.0-8.0); NEUT % 72.4 % (16.0-70.0); PLATELET COUNT 434 TH/MM3 (150-450); RED BLOOD COUNT 4.98 MIL/MM3 (4.50-5.90); RED CELL DISTRIBUTION WIDTH 14.6 % (11.6-17.2); WHITE BLOOD COUNT 13.3 TH/MM3 (4.0-11.0)
[2017-04-17 21:29] LABS: BICARBONATE 24.1 MEQ/L (21.0-32.0); POTASSIUM 4.1 MEQ/L (3.5-5.1)
[2017-04-17 23:00] VITALS: BP 144/71; PULSE 79; RESP 14; O2SAT 99
[2017-04-18 03:00] VITALS: BP 156/82; PULSE 68; RESP 14; O2SAT 97
--- NOTE | 2017-04-18 08:54 | PD ---
Physical Exam Time Seen by Provider: 08:30 Data Data Last Documented VS Vital Signs Date Time Temp Pulse Resp B/P (MAP) Pulse Ox O2 Delivery O2 Flow Rate FiO2 04/18/17 03:00 68 14 156/82 (106) 97 Room Air 04/17/17 19:17 97.9 Orders Orders Complete Blood Count With Diff (04/17/17 20:27) Basic Metabolic Panel (Bmp) (04/17/17 20:27) Iv Access Insert/Monitor (04/17/17 20:27) Levetiracetam Inj (Keppra Inj) (04/17/17 20:30) Sodium Chlor 0.9% 1000 Ml Inj (Ns 1000 M (04/17/17 20:45) Diet Regular Basic (04/18/17 Breakfast) Ed Discharge Order (04/18/17 08:52) Labs Laboratory Tests Test 04/17/17 20:07 White Blood Count 13.3 TH/MM3 Red Blood Count 4.98 MIL/MM3 Hemoglobin 15.1 GM/DL Hematocrit 47.4 % Mean Corpuscular Volume 95.1 FL Mean Corpuscular Hemoglobin 30.4 PG Mean Corpuscular Hemoglobin Concent 31.9 % Red Cell Distribution Width 14.6 % Platelet Count 434 TH/MM3 Mean Platelet Volume 8.1 FL Neutrophils (%) (Auto) 72.4 % Lymphocytes (%) (Auto) 15.5 % Monocytes (%) (Auto) 9.5 % Eosinophils (%) (Auto) 1.8 % Basophils (%) (Auto) 0.8 % Neutrophils # (Auto) 9.6 TH/MM3 Lymphocytes # (Auto) 2.1 TH/MM3 Monocytes # (Auto) 1.3 TH/MM3 Eosinophils # (Auto) 0.2 TH/MM3 Basophils # (Auto) 0.1 TH/MM3 CBC Comment DIFF FINAL Differential Comment Blood Urea Nitrogen 40 MG/DL Creatinine 1.28 MG/DL Random Glucose 98 MG/DL Calcium Level 10.1 MG/DL Sodium Level 147 MEQ/L Potassium Level 4.1 MEQ/L Chloride Level 112 MEQ/L Carbon Dioxide Level 24.1 MEQ/L Anion Gap 11 MEQ/L Estimat Glomerular Filtration Rate 55 ML/MIN [facility] Medical Record Reviewed: Yes Supervised Visit with RENETTA: No Narrative Course Please see Dr. Del Rio's note for complete history of present illness. This is a patient with dementia who is sent here for refusing to take his medication. Psychiatric screening was ordered however the psychiatric team feels that the patient could not consent for this. He does not meet no act criteria. There is no medical issue that would warrant keeping the patient here further. He is stable for discharge. Diagnosis Primary Impression: Dehydration Additional Impression: Hypernatremia Med/Other Pt SpecificInfo: No Change to Meds Disposition: 03 DISCHARGE TO SNF Condition: Stable David Adams Apr 18, 2017 08:54
== END 2017-04-18 11:03 ==
LOC: NEPD 18:11
DX: E86.0 Dehydration (principal); E87.0 Hyperosmolality and hypernatremia; I10 Essential (primary) hypertension; E10.9 Type 1 diabetes mellitus without complications; E78.00 Pure hypercholesterolemia, unspecified; F20.9 Schizophrenia, unspecified; F03.90 Unspecified dementia, unspecified severity, without behavioral disturbance, psychotic disturbance, mood disturbance, and anxiety; Z86.73 Personal history of transient ischemic attack (TIA), and cerebral infarction without residual deficits; K21.9 Gastro-esophageal reflux disease without esophagitis
CPT/HCPCS: 80048; 85025; 96365; 99284; J1953; J7030